=== PATIENT | female | born 1965 | race Caucasian/White ===

== ENCOUNTER 2019-05-11 13:53 | Inpatient (IN) | payer OTHER ==
--- NOTE | 2019-05-11 15:09 | XRAY ---
Indication: Right upper lobe pneumonia. Comparison: One day earlier. PA/lateral chest unchanged again demonstrating right perihilar infiltrates and inferior right upper lobe consolidation/subsegmental atelectasis. Remaining heart and left lung normal. No new cardiopulmonary abnormalities.
[2019-05-11] MEDS: DUONEB 0.5-3 MG/3 ml Neb IH SCH ×2 (15:26→19:30)
[2019-05-11] MEDS ORDERED: Sodium Chloride 0.9% 1000 ML 1,000 ML IV SCH (15:30)
[2019-05-11 15:54] LABS: Hemoglobin 11.3 gm/dl (12.0-16.0); Mean Corpuscular Hemoglobin 29.6 pg (26-32); Mean Corpuscular Hgb Concent. 33.2 g/dl (32-36); Mean Platelet Volume 9.3 fl (7.5-11.0); Platelet Count 394 K/mm3 (150-450); Red Blood Count 3.82 M/mm3 (4.1-5.4); Red Cell Distribution Width 13.1 % (11.5-14.0); White Blood Count 13.1 K/mm3 (4.0-10.5)
[2019-05-11] MEDS ORDERED: solu-MEDROL 40 MG IV SCH (16:00)
[2019-05-11 16:06] LABS: ALBUMIN 3.4 g/dL (3.5-5.0); ALKALINE PHOSPHATASE 142 U/L (38-126); BLOOD UREA NITROGEN 12 mg/dL (7-17); CHLORIDE 97 mmol/L (98-107); Calcium 8.6 mg/dL (8.4-10.2); Carbon Dioxide 31 mmol/L (22-30); Creatinine 1 0.55 mg/dL (0.52-1.04); Glucose 121 mg/dL (74-106); Potassium 3.4 mmol/L (3.5-5.1); SGOT/AST 50 U/L (14-36); SGPT/ALT 35 U/L (0-35); SODIUM 133 mmol/L (137-145)
[2019-05-11] MEDS: Lactated Ringers 1,000 ML IV SCH (17:15)
--- NOTE | 2019-05-11 17:50 | PCM.HP ---
History of Present Illness - Chief Complaint Chief Complaint: Pneumonia History of Present Illness: is a 53 year old female pt of mine from [facility] who was directlyh admitted for worsening pneumonia today. She has been sick x 9d; was seen in office and given po augmentin. Over the weekend she continued to have fevers to 102 and her daughter who is an RN checked a pulse ox and found her 87-88% on room air today. She did take 1 levaquin 500mg po this morning that I had called in. She got a dose of solumedrol already with some change in her cough h ere. - Review of Systems Constitutional: Fever, Weakness Respiratory: Cough, Short Of Breath Abdominal/Gastrointestinal: Diarrhea, Appetite Changes Psychological: No Anxiety, No Depression Medications & Allergies Home Medications: Home Medication List estradioL [Estradiol] 1 mg PO DAILY 05/11/19 [History Confirmed 05/11/19] Allergies/Adverse Reactions: Allergies Allergy/AdvReac Type Severity Reaction Status Date / Time No Known Drug Allergies Allergy Verified 05/11/19 15:34 - Past Medical History Past Medical History: Yes Comment: Skin Cancer - Past Surgical History Past Surgical History: Yes Female Surgical History: Hysterectomy, Section - Social History Smoking Status: Never smoker Alcohol: None Drug Use: none - Physical Exam Vital Signs: Vital Signs - 24 hr Temp Pulse Resp BP Pulse Ox 05/11/19 15:30 91 H 18 91 L 05/11/19 15:19 98.3 F 107 H 18 146/67 91 L 05/11/19 14:20 98.3 F 107 H 18 146/67 91 L 05/11/19 14:19 98.3 F 107 H 18 146/67 91 L General Appearance: no apparent distress, alert Neurologic Exam: oriented x 3, cooperative Eye Exam: eyes nml inspection Ears, Nose, Throat Exam: moist mucous membranes Neck Exam: normal inspection, non-tender, No lymphadenopathy Respiratory Exam: normal breath sounds, rhonchi (RUL), wheezing (scattered throughout), No crackles/rales Cardiovascular Exam: regular rate/rhythm, normal heart sounds, No murmur Gastrointestinal/Abdomen Exam: soft, normal bowel sounds, No tenderness, No distention, No mass, No guarding, No rebound Back Exam: normal inspection, No CVA tenderness, No rash Extremity Exam: normal inspection, No swelling, No tenderness Results - Labs Lab/Micro Results: Lab Results-Last 24 Hours 05/11/19 05/11/19 Range/Units 15:45 15:45 WBC 13.1 H (4.0-10.5) K/mm3 RBC 3.82 L (4.1-5.4) M/mm3 Hgb 11.3 L (12.0-16.0) gm/dl Hct 34.0 L (35-47) % MCV 89.0 (78-100) fl MCH 29.6 (26-32) pg MCHC 33.2 (32-36) g/dl RDW 13.1 (11.5-14.0) % Plt Count 394 (150-450) K/mm3 MPV 9.3 (7.5-11.0) fl Sodium 133 L (137-145) mmol/L Potassium 3.4 L (3.5-5.1) mmol/L Chloride 97 L (98-107) mmol/L Carbon Dioxide 31 H (22-30) mmol/L Anion Gap 9.0 (5-15) MEQ/L BUN 12 (7-17) mg/dL Creatinine 0.55 (0.52-1.04) mg/dL Estimated GFR > 60.0 ML/MIN Glucose 121 H (74-106) mg/dL Calcium 8.6 (8.4-10.2) mg/dL Total Bilirubin 0.40 (0.2-1.3) mg/dL AST 50 H (14-36) U/L ALT 35 (0-35) U/L Alkaline Phosphatase 142 H (38-126) U/L Serum Total Protein 7.0 (6.3-8.2) g/dL Albumin 3.4 L (3.5-5.0) g/dL - Radiology Impressions Radiology Exams & Impressions: Radiology Procedures Category Date Time Status CHEST 2 VIEWS (PA AND LAT) Routine Exams 05/11/19 15:00 Completed - Other Procedures and Tests Respiratory Therapy 05/11/19 14:40 Oxygen Nasal Cannula 2 lpm 05/11/19 15:07 Respiratory Therapy Assessment DAILY 05/11/19 15:08 Peak Expiratory Flow Rate ONCE Assessment/Plan (1) Pneumonia Current Visit: Yes Status: Acute Qualifiers: Pneumonia type: due to unspecified organism Laterality: right Lung location: upper lobe of lung Qualified Code(s): J18.9 - Pneumonia, unspecified organism Assessment & Plan: Her CXR showed RUL with some possible consolidation. IV levaquin will start tomorrow. IV solumedrol, duonebs. Will attempt to get sputum culture. Will likely take several days to improve. On 2L NC currently. Code(s): J18.9 - PNEUMONIA, UNSPECIFIED ORGANISM
[2019-05-11 18:22] LABS: Appearance CLEAR (CLEAR); Bilirubin NEGATIVE (NEGATIVE); Blood NEGATIVE Ery/ul (0-5); Glucose NEGATIVE (NEGATIVE); Ketones NEGATIVE (NEGATIVE); Leukocyte Esterase NEGATIVE (NEGATIVE); Nitrite NEGATIVE (NEGATIVE); Protein,Urine Dip NEGATIVE (Negative); Specific Gravity 1.011 (1.005-1.025); Urobilinogen NEGATIVE mg/dL (0-1)
[2019-05-11 19:32] LABS: BAND 2 % (0.0-2.0); Basophil 1 % (0.0-1.0); Lymphocytes 5 % (24-44); Monocyte 5 % (0.0-12.0); Neutrophils 87 % (36.0-66.0); Total Cells Counted 100
[2019-05-11 19:39] LABS: Platelet Estimate NORMAL (NORMAL)
[2019-05-11] MEDS ORDERED: Zosyn INJ IV ONE (21:51)
[2019-05-11] MEDS ORDERED: Sodium Chloride 0.9% 100 ML IVPB 100 ML IV ONE (21:56)
[2019-05-11] MEDS: solu-MEDROL 125 MG IV SCH (22:50)
[2019-05-11] MEDS: Zosyn 3.375GM/100 Ml D5W 3.375 GM/100 ML IVPB IV SCH (23:40)
[2019-05-12] MEDS ORDERED: ENOXAPARIN SODIUM SQ ONE (00:39)
[2019-05-12] MEDS: ENOXAPARIN SODIUM SQ SCH ×2 (00:47→23:00)
[2019-05-12] MEDS: Lactated Ringers 1,000 ML IV SCH ×2 (04:10→14:57)
[2019-05-12] MEDS: solu-MEDROL 125 MG IV SCH ×4 (04:10→23:00)
[2019-05-12] MEDS ORDERED: Zosyn INJ IV ONE (05:54)
[2019-05-12] MEDS ORDERED: D5w 100ML Mini Bag 100 ML 100 ML IV ONE (05:55)
[2019-05-12] MEDS: Zosyn 3.375GM/100 Ml D5W 3.375 GM/100 ML IVPB IV SCH (06:08)
[2019-05-12] MEDS: DUONEB 0.5-3 MG/3 ml Neb IH SCH ×4 (06:53→19:59)
[2019-05-12 08:25] LABS: Hematocrit 34.7 % (35-47); Hemoglobin 11.6 gm/dl (12.0-16.0); Mean Cell Volume 88.7 fl (78-100); Mean Corpuscular Hemoglobin 29.7 pg (26-32); Mean Corpuscular Hgb Concent. 33.4 g/dl (32-36); Mean Platelet Volume 9.6 fl (7.5-11.0); Platelet Count 460 K/mm3 (150-450); Red Blood Count 3.91 M/mm3 (4.1-5.4); White Blood Count 12.3 K/mm3 (4.0-10.5)
[2019-05-12 08:42] LABS: BAND 2 % (0.0-2.0); Lymphocytes 4 % (24-44); Metamyelocyte 1 %; Monocyte 1 % (0.0-12.0); Neutrophils 92 % (36.0-66.0); Platelet Estimate NORMAL (NORMAL); Total Cells Counted 100
[2019-05-12 09:01] LABS: ANION GAP 12.1 MEQ/L (5-15); BLOOD UREA NITROGEN 10 mg/dL (7-17); CHLORIDE 101 mmol/L (98-107); Calcium 8.4 mg/dL (8.4-10.2); Carbon Dioxide 28 mmol/L (22-30); Creatinine 1 0.64 mg/dL (0.52-1.04); Glucose 216 mg/dL (74-106); Potassium 3.3 mmol/L (3.5-5.1); SODIUM 137 mmol/L (137-145)
--- NOTE | 2019-05-12 09:04 | XRAY ---
Indication: Pneumonia. Elevated d-dimer. Multiple contiguous axial images obtained through the chest using 80 cc Isovue 370 contrast and PE protocol. Comparison: None There is good opacification of the pulmonary arteries to include the lumbar and segmental branches. No filling defect or pulmonary embolus. Heart is not enlarged. Aorta is normal in course and caliber. No pathologic mediastinal/hilar lymphadenopathy. Lungs demonstrates diffuse right lung patchy airspace opacities with multiple foci of consolidations and tiny right effusion. Minimal patchy left upper lobe airspace opacities and left base subsegmental atelectasis. Bony thorax intact with pectus excavatum deformity. Limited upper abdomen demonstrates 12.3 cm splenomegaly and mild fatty liver. Impression: 1. Negative pulmonary embolus. 2. Diffuse right lung and minimal left upper lobe airspace disease with multifocal right lung consolidations and tiny right effusion. 3. Incidental fatty liver, spinal megaly, and pectus excavatum deformity. Comment: Preliminary interpretation was made by [facility]. No critical discrepancy.
--- NOTE | 2019-05-12 09:04 | PCM.NOTE ---
Date and Time: 05/12/19900 Subjective Assessment: She had desaturations last night and is currently on 5L NC. D-dimer was performed which was elevated >1400; CT chest with contrast revealed no PE, just bilat patchy consolidation consistent with penumonia. Antibiotic was changed to zosyn last night and pt was started on prophylactic dose of lovenox. This morning, pt is sitting in chair comfortably on her telephone. - Review of Systems Constitutional: No Fever Respiratory: Cough, Short Of Breath Objective Exam General Appearance: no apparent distress, alert Neurologic Exam: oriented x 3, cooperative Skin Exam: normal color, warm, dry, No rash Ears, Nose, Throat Exam: moist mucous membranes Neck Exam: normal inspection Respiratory Exam: rhonchi (bilat, particularly at the bases), wheezing ( throughout) Cardiovascular Exam: regular rate/rhythm, normal heart sounds, No murmur Extremity Exam: normal inspection, No pedal edema, No swelling Back Exam: normal inspection, No rash OBJECTIVE DATA Vital Signs: Vital Signs - 24 hr Temp Pulse Resp BP Pulse Ox 05/12/19 07:27 98.4 F 81 18 133/65 94 L 05/12/19 07:07 91 L 05/12/19 06:59 82 16 91 L 05/12/19 04:00 98.4 F 90 25 H 125/63 94 L 05/11/19 22:00 98.6 F 92 H 16 134/65 93 L 05/11/19 21:53 92 L 05/11/19 20:36 90 L 05/11/19 19:30 105 H 16 89 L 05/11/19 18:19 99 F 112 H 16 171/79 90 L 05/11/19 15:30 91 H 18 91 L 05/11/19 15:19 98.3 F 107 H 18 146/67 91 L 05/11/19 14:20 98.3 F 107 H 18 146/67 91 L 05/11/19 14:19 98.3 F 107 H 18 146/67 91 L Oxygen-Last 24 hours Oxygen Flowrate (L/min)-RT 5 Pain Assessment - Last Documented Pain Intensity 0 Pain Scale Used 0-10 Pain Scale Intake and Output: Intake & Output 05/09/19 05/10/19 05/11/19 05/12/19 11:59 11:59 11:59 11:59 Intake Total 1406 Output Total 1900 Balance -494 Weight 66.7 kg Lab Results: Lab Results-Last 24 Hours 05/11/19 05/11/19 05/11/19 Range/Units 15:45 15:45 18:04 WBC 13.1 H (4.0-10.5) K/mm3 RBC 3.82 L (4.1-5.4) M/mm3 Hgb 11.3 L (12.0-16.0) gm/dl Hct 34.0 L (35-47) % MCV 89.0 (78-100) fl MCH 29.6 (26-32) pg MCHC 33.2 (32-36) g/dl RDW 13.1 (11.5-14.0) % Plt Count 394 (150-450) K/mm3 MPV 9.3 (7.5-11.0) fl Segmented Neutrophils 87 H (36.0-66.0) % Band Neutrophils 2 (0.0-2.0) % Lymphocytes (Manual) 5 L (24-44) % Monocytes (Manual) 5 (0.0-12.0) % Basophils (Manual) 1 (0.0-1.0) % Metamyelocytes % Platelet Estimate NORMAL (NORMAL) RBC Morphology NORMAL D-Dimer (215-500) ng/mL Sodium 133 L (137-145) mmol/L Potassium 3.4 L (3.5-5.1) mmol/L Chloride 97 L (98-107) mmol/L Carbon Dioxide 31 H (22-30) mmol/L Anion Gap 9.0 (5-15) MEQ/L BUN 12 (7-17) mg/dL Creatinine 0.55 (0.52-1.04) mg/dL Estimated GFR > 60.0 ML/MIN Glucose 121 H (74-106) mg/dL Calcium 8.6 (8.4-10.2) mg/dL Total Bilirubin 0.40 (0.2-1.3) mg/dL AST 50 H (14-36) U/L ALT 35 (0-35) U/L Alkaline Phosphatase 142 H (38-126) U/L Serum Total Protein 7.0 (6.3-8.2) g/dL Albumin 3.4 L (3.5-5.0) g/dL Urine Color YELLOW (YELLOW) Urine Appearance CLEAR (CLEAR) Urine pH 7.0 (5-6) Ur Specific Prospect 1.011 (1.005-1.025) Urine Protein NEGATIVE (Negative) Urine Ketones NEGATIVE (NEGATIVE) Urine Blood NEGATIVE (0-5) Quirino/ul Urine Nitrite NEGATIVE (NEGATIVE) Urine Bilirubin NEGATIVE (NEGATIVE) Urine Urobilinogen NEGATIVE (0-1) mg/dL Ur Leukocyte Esterase NEGATIVE (NEGATIVE) Urine WBC (Auto) NONE (0-5) /HPF Urine RBC (Auto) NONE (0-2) /HPF U Epithel Cells (Auto) NONE (FEW) /HPF Urine Culture Reflexed NO (NO) Urine Glucose NEGATIVE (NEGATIVE) mg/dL 05/11/19 05/12/19 Range/Units 22:00 08:15 WBC 12.3 H (4.0-10.5) K/mm3 RBC 3.91 L (4.1-5.4) M/mm3 Hgb 11.6 L (12.0-16.0) gm/dl Hct 34.7 L (35-47) % MCV 88.7 (78-100) fl MCH 29.7 (26-32) pg MCHC 33.4 (32-36) g/dl RDW 13.0 (11.5-14.0) % Plt Count 460 H (150-450) K/mm3 MPV 9.6 (7.5-11.0) fl Segmented Neutrophils 92 H (36.0-66.0) % Band Neutrophils 2 (0.0-2.0) % Lymphocytes (Manual) 4 L (24-44) % Monocytes (Manual) 1 (0.0-12.0) % Basophils (Manual) (0.0-1.0) % Metamyelocytes 1 % Platelet Estimate NORMAL (NORMAL) RBC Morphology NORMAL D-Dimer 1429 H* (215-500) ng/mL Sodium (137-145) mmol/L Potassium (3.5-5.1) mmol/L Chloride (98-107) mmol/L Carbon Dioxide (22-30) mmol/L Anion Gap (5-15) MEQ/L BUN (7-17) mg/dL Creatinine (0.52-1.04) mg/dL Estimated GFR ML/MIN Glucose (74-106) mg/dL Calcium (8.4-10.2) mg/dL Total Bilirubin (0.2-1.3) mg/dL AST (14-36) U/L ALT (0-35) U/L Alkaline Phosphatase (38-126) U/L Serum Total Protein (6.3-8.2) g/dL Albumin (3.5-5.0) g/dL Urine Color (YELLOW) Urine Appearance (CLEAR) Urine pH (5-6) Ur Specific Prospect (1.005-1.025) Urine Protein (Negative) Urine Ketones (NEGATIVE) Urine Blood (0-5) Quirino/ul Urine Nitrite (NEGATIVE) Urine Bilirubin (NEGATIVE) Urine Urobilinogen (0-1) mg/dL Ur Leukocyte Esterase (NEGATIVE) Urine WBC (Auto) (0-5) /HPF Urine RBC (Auto) (0-2) /HPF U Epithel Cells (Auto) (FEW) /HPF Urine Culture Reflexed (NO) Urine Glucose (NEGATIVE) mg/dL Radiology Exams: Radiology Procedures Category Date Time Status CHEST 2 VIEWS (PA AND LAT) Routine Exams 05/11/19 15:00 Completed CHEST WITH CONTRAST [CT] Stat Exams 05/11/19 22:18 Taken Assessment/Plan (1) Pneumonia Current Visit: Yes Status: Acute Qualifiers: Pneumonia type: due to unspecified organism Laterality: right Lung location: upper lobe of lung Qualified Code(s): J18.9 - Pneumonia, unspecified organism Assessment & Plan: with hypoxemia; however clinically pt is looking good, in no distress. I expect her to improve today on the zosyn and steroids. If not, would consider pulmonology consult. Code(s): J18.9 - PNEUMONIA, UNSPECIFIED ORGANISM
[2019-05-12] MEDS ORDERED: Levofloxacin 500MG/100ML D5W 500 MG/100 ML BAG IV SCH (10:00)
[2019-05-12] MEDS: ESTRACE 1 MG PO SCH (10:43)
[2019-05-12] MEDS: Mucinex 600MG ER Tabs PO SCH ×2 (10:43→23:00)
[2019-05-12] MEDS: Zosyn INJ 4.5 GM in Sodium Chloride 100ML MINI-BAG PLUS 100 ML IV SCH ×3 (11:47→23:01)
[2019-05-12] MEDS ORDERED: WATER IV SCH (12:00)
[2019-05-12] MEDS ORDERED: ZOSYN IV SCH (12:00)
[2019-05-12] MEDS ORDERED: DEXTROSE IV SCH (12:00)
[2019-05-13] MEDS: Lactated Ringers 1,000 ML IV SCH ×2 (01:53→13:11)
[2019-05-13 05:09] LABS: ANION GAP 8.9 MEQ/L (5-15); BLOOD UREA NITROGEN 15 mg/dL (7-17); CHLORIDE 103 mmol/L (98-107); Carbon Dioxide 30 mmol/L (22-30); Creatinine 1 0.67 mg/dL (0.52-1.04); Glucose 163 mg/dL (74-106); Potassium 3.4 mmol/L (3.5-5.1); SODIUM 139 mmol/L (137-145)
[2019-05-13 05:16] LABS: Hematocrit 30.1 % (35-47); Hemoglobin 9.8 gm/dl (12.0-16.0); Mean Cell Volume 89.9 fl (78-100); Mean Corpuscular Hemoglobin 29.3 pg (26-32); Mean Corpuscular Hgb Concent. 32.6 g/dl (32-36); Mean Platelet Volume 9.9 fl (7.5-11.0); Platelet Count 459 K/mm3 (150-450); Red Blood Count 3.35 M/mm3 (4.1-5.4); White Blood Count 19.3 K/mm3 (4.0-10.5)
[2019-05-13 05:39] LABS: BAND 2 % (0.0-2.0); Lymphocytes 2 % (24-44); Monocyte 1 % (0.0-12.0); Neutrophils 95 % (36.0-66.0); Platelet Estimate NORMAL (NORMAL); Total Cells Counted 100
[2019-05-13] MEDS: solu-MEDROL 125 MG IV SCH ×4 (05:40→23:33)
[2019-05-13] MEDS: Zosyn INJ 4.5 GM in Sodium Chloride 100ML MINI-BAG PLUS 100 ML IV SCH ×4 (05:41→23:34)
[2019-05-13] MEDS: DUONEB 0.5-3 MG/3 ml Neb IH SCH ×4 (06:49→18:59)
--- NOTE | 2019-05-13 08:56 | PCM.NOTE ---
Date and Time: 05/13/19 08 Subjective Assessment: Pt went down to 4L O2 per NC from 5L yesterday. She has increased appetite today. - Review of Systems Constitutional: No Fever Respiratory: Cough, Short Of Breath Objective Exam General Appearance: no apparent distress, alert Neurologic Exam: oriented x 3, cooperative Skin Exam: normal color, warm, dry, No rash Respiratory Exam: normal breath sounds, rhonchi (LLL particularly), No crackles/ rales, No wheezing Cardiovascular Exam: regular rate/rhythm, normal heart sounds, No murmur Extremity Exam: normal inspection, No pedal edema, No swelling Back Exam: normal inspection, No rash OBJECTIVE DATA Vital Signs: Vital Signs - 24 hr Temp Pulse Resp BP Pulse Ox 05/13/19 07:26 98.2 F 101 H 18 134/63 92 L 05/13/19 06:53 84 16 90 L 05/13/19 04:00 98.4 F 83 18 148/76 97 05/13/19 00:00 98.8 F 88 20 156/75 96 05/12/19 23:47 95 05/12/19 20:04 91 H 20 93 L 05/12/19 20:00 97.5 F 92 H 18 141/71 96 05/12/19 16:00 98.0 F 101 H 18 152/72 95 05/12/19 15:34 86 24 95 05/12/19 11:29 88 22 05/12/19 11:27 90 18 136/76 92 L Oxygen-Last 24 hours Oxygen Flowrate (L/min)-RT 4 Oxygen Flowrate (L/min)-RT 5 Oxygen Flowrate (L/min)-RT 4 Pain Assessment - Last Documented Pain Intensity 0 Pain Scale Used 0-10 Pain Scale Intake and Output: Intake & Output 05/10/19 05/11/19 05/12/19 05/13/19 11:59 11:59 11:59 11:59 Intake Total 6456 3931 Output Total 1900 700 Balance -14 3231 Weight 66.7 kg Lab Results: Lab Results-Last 24 Hours 05/12/19 05/13/19 05/13/19 Range/Units 08:15 04:25 04:25 WBC 19.3 H (4.0-10.5) K/mm3 RBC 3.35 L (4.1-5.4) M/mm3 Hgb 9.8 L (12.0-16.0) gm/dl Hct 30.1 L (35-47) % MCV 89.9 (78-100) fl MCH 29.3 (26-32) pg MCHC 32.6 (32-36) g/dl RDW 13.0 (11.5-14.0) % Plt Count 459 H (150-450) K/mm3 MPV 9.9 (7.5-11.0) fl Segmented Neutrophils 95 H (36.0-66.0) % Band Neutrophils 2 (0.0-2.0) % Lymphocytes (Manual) 2 L (24-44) % Monocytes (Manual) 1 (0.0-12.0) % Platelet Estimate NORMAL (NORMAL) RBC Morphology NORMAL Sodium 137 139 (137-145) mmol/L Potassium 3.3 L 3.4 L (3.5-5.1) mmol/L Chloride 101 103 (98-107) mmol/L Carbon Dioxide 28 30 (22-30) mmol/L Anion Gap 12.1 8.9 (5-15) MEQ/L BUN 10 15 (7-17) mg/dL Creatinine 0.64 0.67 (0.52-1.04) mg/dL Estimated GFR > 60.0 > 60.0 ML/MIN Glucose 216 H 163 H (74-106) mg/dL Calcium 8.4 8.0 L (8.4-10.2) mg/dL Radiology Exams: Radiology Procedures Category Date Time Status CHEST 2 VIEWS (PA AND LAT) Routine Exams 05/11/19 15:00 Completed CHEST WITH CONTRAST [CT] Stat Exams 05/11/19 22:18 Completed Assessment/Plan (1) Pneumonia Current Visit: Yes Status: Acute Qualifiers: Pneumonia type: due to unspecified organism Laterality: right Lung location: upper lobe of lung Qualified Code(s): J18.9 - Pneumonia, unspecified organism Assessment & Plan: She does still have rhonchi, otherwise sounding a little better to me than at admission. Still hypoxemic and on 4L NC. Will go ahead and consult pulmonology , thank you. Code(s): J18.9 - PNEUMONIA, UNSPECIFIED ORGANISM
[2019-05-13] MEDS: ESTRACE 1 MG PO SCH (10:17)
[2019-05-13] MEDS: Mucinex 600MG ER Tabs PO SCH ×2 (10:17→21:12)
[2019-05-13] MEDS: ENOXAPARIN SODIUM SQ SCH (21:12)
[2019-05-14] MEDS: Lactated Ringers 1,000 ML IV SCH (02:38)
[2019-05-14] MEDS: Zosyn INJ 4.5 GM in Sodium Chloride 100ML MINI-BAG PLUS 100 ML IV SCH ×4 (05:22→23:42)
[2019-05-14] MEDS: solu-MEDROL 125 MG IV SCH ×3 (05:22→22:03)
[2019-05-14] MEDS: DUONEB 0.5-3 MG/3 ml Neb IH SCH ×4 (07:06→19:30)
[2019-05-14] MEDS: Mucinex 600MG ER Tabs PO SCH ×2 (08:13→22:03)
[2019-05-14] MEDS: ESTRACE 1 MG PO SCH (08:13)
--- NOTE | 2019-05-14 08:18 | CONS ---
CONSULT DATE: 05/13/2019: HISTORY: Jewels Oconnor is a 53 year-old woman without any significant past pulmonary or general medical problems, who was in usual state of health about ten days ago. The patient started having chills with fever and was seen in [facility] where she apparently tested negative for influenza. She was advised to rest. The patient reports that her symptoms are progressively worse with high grade fever, cough and progressive shortness of breath. In addition, she was noted to have drop in oxygen saturation leading to another visit to Dr. Fuentes. She diagnosed the patient with pneumonia and she has been since admitted to the medical floor. The patient had a positive D-dimer. A CT chest performed on 05/11/2019 showed no evidence of pulmonary embolism. However diffuse right lung and mild left upper lobe air space disease suggestive of pneumonia with small right pleural effusion was noted. The patient has been treated with IV antibiotics since admission. At the time of my evaluation she does report clinical improvement. She has cough which has been productive of thick expectoration. She denies any hemoptysis. The patient reportedly had pneumonia about eight years ago that was treated as an outpatient. She has not had any other pulmonary problems. PAST MEDICAL HISTORY: Reportedly she has been in good health. MEDICATIONS: Other than calcium, hormone replacement she does not take any other prescription medications. Medications reviewed. ALLERGIES: NKDA. PAST SURGICAL HISTORY: Positive for hysterectomy and section. PERSONAL AND SOCIAL HISTORY: She is a nonsmoker. MEDICATIONS: Home and current medications are reviewed. PHYSICAL EXAMINATION: This is a middle aged woman who appears comfortable. She is able to speak without any difficulty, sitting in chair on oxygen via nasal cannula. Vital signs noted. HEENT: Normocephalic. Oral exam is unremarkable. CVS: First and second heart sounds are noted to be normal, regular, rhythmic. RESPIRATORY: Shows diminished breath sounds. Bilateral crackles are heard right more than left. ABDOMEN: Soft. No edema is noted. LABORATORY DATA AND TESTS: White count is 19.3, hemoglobin 9.8, hematocrit 30, PLT 459,000. Sodium 139, potassium 3.4, chloride 103, bicarb 30, glucose 163, BUN 15, creatinine 0.6. CT chest as above. ASSESSMENT: This is a 53 year old healthy woman who has been hospitalized with: 1) Multi-lobar community acquired pneumonia. 2) Hypoxemic respiratory failure secondary to above. 3) Small right pleural effusion likely parapneumonic, needs monitoring for resolution. 4) Anemia mild with leukocytosis. RECOMMENDATIONS: 1) The patient is already clinically showing improvement. 2) Advised to continue antibiotics for at least 48 hours. A repeat chest x-ray prior to discharge and upon completion of antibiotic therapy is advised for complete resolution of pneumonia. 3) Advised to have a flu shot. The patient reportedly has never had one in the past. 4) Venous Doppler's for positive D-dimer if not already done. I will be available if any questions are unanswered. Thank you, Dr. Fuentes, for allowing me to participate in the care of Miss Oconnor.
--- NOTE | 2019-05-14 08:36 | XRAY ---
Indication: Hypoxia. Follow-up pneumonia. Comparison: May 11, 2019. PA/lateral chest continues to remain unchanged again demonstrating right perihilar infiltrates, inferior right upper lobe consolidation/atelectasis, and left lower lobe infiltrate/atelectasis. Heart and mediastinal structures within normal limits. No new cardiopulmonary abnormalities.
[2019-05-14] MEDS ORDERED: Sodium Chloride 0.9% 10 ML FLUSH Syringe IV PRN (09:00)
--- NOTE | 2019-05-14 09:10 | PCM.NOTE ---
Date and Time: 05/14/19908 Subjective Assessment: She is feeling better. Down to 2L NC. - Review of Systems Constitutional: No Fever Respiratory: Cough, Short Of Breath Objective Exam General Appearance: no apparent distress, alert Neurologic Exam: oriented x 3, cooperative Skin Exam: normal color, warm, dry, No rash Respiratory Exam: rhonchi (LLL), wheezing (scattered throughout), No diminished breath sounds, No crackles/rales Cardiovascular Exam: regular rate/rhythm, normal heart sounds, No murmur Extremity Exam: normal inspection, No pedal edema, No swelling Back Exam: normal inspection, No rash OBJECTIVE DATA Vital Signs: Vital Signs - 24 hr Temp Pulse Resp BP Pulse Ox 05/14/19 07:58 97.9 F 88 18 153/73 94 L 05/14/19 07:15 94 H 16 93 L 05/14/19 04:00 97.9 F 84 18 174/80 96 05/14/19 00:00 98.5 F 102 H 20 147/85 93 L 05/13/19 20:00 98.3 F 81 18 156/73 95 05/13/19 19:04 88 21 93 L 05/13/19 17:48 93 L 05/13/19 16:00 98.3 F 92 H 18 135/76 93 L 05/13/19 14:17 88 16 97 05/13/19 12:00 98.2 F 92 H 18 129/67 94 L 05/13/19 10:14 90 18 91 L Oxygen-Last 24 hours Oxygen Flowrate (L/min)-RT 2 Oxygen Flowrate (L/min)-RT 2 Oxygen Flowrate (L/min)-RT 2 Pain Assessment - Last Documented Pain Intensity 0 Pain Scale Used [facility] Intake and Output: Intake & Output 05/11/19 05/12/19 05/13/19 05/14/19 11:59 11:59 11:59 11:59 Intake Total 1886 4411 3604 Output Total 5252 412 0590 Balance -14 3711 1304 Weight 66.7 kg 66.7 kg Radiology Exams: Radiology Procedures Category Date Time Status CHEST 2 VIEWS (PA AND LAT) Routine Exams 05/14/19 07:00 Completed VENOUS BILATERAL EXTREMITY [US] Routine Exams 05/14/19 07:00 Ordered Assessment/Plan (1) Pneumonia Current Visit: Yes Status: Acute Qualifiers: Pneumonia type: due to unspecified organism Laterality: right Lung location: upper lobe of lung Qualified Code(s): J18.9 - Pneumonia, unspecified organism Assessment & Plan: Pulmonology consulted yesterday, thank you. She is improved. On IV zosyn and IV steroids. Decrease steroids again slightly. Code(s): J18.9 - PNEUMONIA, UNSPECIFIED ORGANISM
[2019-05-14 10:24] LABS: Hematocrit 31.1 % (35-47); Hemoglobin 10.1 gm/dl (12.0-16.0); Mean Cell Volume 90.4 fl (78-100); Mean Corpuscular Hemoglobin 29.4 pg (26-32); Mean Corpuscular Hgb Concent. 32.5 g/dl (32-36); Mean Platelet Volume 9.6 fl (7.5-11.0); Platelet Count 502 K/mm3 (150-450); Red Blood Count 3.44 M/mm3 (4.1-5.4); Red Cell Distribution Width 13.2 % (11.5-14.0); White Blood Count 19.4 K/mm3 (4.0-10.5)
[2019-05-14 11:12] LABS: ANION GAP 12.9 MEQ/L (5-15); BLOOD UREA NITROGEN 17 mg/dL (7-17); CHLORIDE 102 mmol/L (98-107); Calcium 7.9 mg/dL (8.4-10.2); Carbon Dioxide 27 mmol/L (22-30); Creatinine 1 0.75 mg/dL (0.52-1.04); Glucose 196 mg/dL (74-106); MAGNESIUM 2.4 mg/dL (1.6-2.3); SODIUM 139 mmol/L (137-145)
[2019-05-14 11:13] LABS: Potassium 2.9 mmol/L (3.5-5.1)
[2019-05-14] MEDS: K-LYTE 25 MEQ PO SCH ×2 (11:42→22:03)
--- NOTE | 2019-05-14 12:06 | XRAY ---
Indication: Elevated d-dimer. Two-dimensional sonogram and color Doppler imaging of the major venous vessels of left and right leg was performed. Comparison: None No thrombus seen in the examined deep venous vessels of the left and right leg including greater saphenous vein. Veins demonstrate normal compressibility. Venous waveforms are normal with and without augmentation. Impression: Left and right legs negative for DVT.
[2019-05-14] MEDS: Sodium Chloride 0.9% 10 ML FLUSH Syringe IV SCH ×2 (13:34→22:04)
[2019-05-14 14:35] LABS: MAGNESIUM 2.4 mg/dL (1.6-2.3); Potassium 3.2 mmol/L (3.5-5.1)
[2019-05-14] MEDS: ENOXAPARIN SODIUM SQ SCH (22:03)
[2019-05-15 05:27] LABS: Hemoglobin 9.9 gm/dl (12.0-16.0); Mean Cell Volume 90.6 fl (78-100); Mean Corpuscular Hemoglobin 28.9 pg (26-32); Mean Corpuscular Hgb Concent. 31.9 g/dl (32-36); Mean Platelet Volume 9.4 fl (7.5-11.0); Platelet Count 513 K/mm3 (150-450); Red Blood Count 3.42 M/mm3 (4.1-5.4); Red Cell Distribution Width 13.1 % (11.5-14.0); White Blood Count 19.1 K/mm3 (4.0-10.5)
[2019-05-15] MEDS: DUONEB 0.5-3 MG/3 ml Neb IH SCH ×4 (05:33→20:11)
[2019-05-15] MEDS: solu-MEDROL 125 MG IV SCH ×3 (06:03→22:09)
[2019-05-15] MEDS: Zosyn INJ 4.5 GM in Sodium Chloride 100ML MINI-BAG PLUS 100 ML IV SCH ×3 (06:04→18:36)
[2019-05-15] MEDS: Sodium Chloride 0.9% 10 ML FLUSH Syringe IV SCH ×3 (06:04→22:10)
[2019-05-15 06:09] LABS: ANION GAP 8.5 MEQ/L (5-15); BLOOD UREA NITROGEN 15 mg/dL (7-17); CHLORIDE 99 mmol/L (98-107); Calcium 7.7 mg/dL (8.4-10.2); Carbon Dioxide 32 mmol/L (22-30); Creatinine 1 0.72 mg/dL (0.52-1.04); Glucose 128 mg/dL (74-106); MAGNESIUM 2.4 mg/dL (1.6-2.3); Potassium 3.5 mmol/L (3.5-5.1); SODIUM 136 mmol/L (137-145)
--- NOTE | 2019-05-15 08:48 | PCM.NOTE ---
Date and Time: 05/15/19 0844 Subjective Assessment: Pt is feeling better, less short of breath. Nikolay po well. Starting to have some productivity to her cough. Went down to 1L NC for a while yesterday then had to increase back up to 2L NC. - Review of Systems Constitutional: No Fever Respiratory: Cough Objective Exam General Appearance: no apparent distress, alert Neurologic Exam: oriented x 3, cooperative Skin Exam: normal color, warm, dry, No rash Eye Exam: eyes nml inspection Ears, Nose, Throat Exam: moist mucous membranes Neck Exam: normal inspection Respiratory Exam: normal breath sounds, rhonchi (bilat bases), wheezing (faint, scattered), No crackles/rales Cardiovascular Exam: regular rate/rhythm, normal heart sounds, No murmur Extremity Exam: normal inspection, No pedal edema, No swelling Back Exam: normal inspection, No rash OBJECTIVE DATA Vital Signs: Vital Signs - 24 hr Temp Pulse Resp BP Pulse Ox 05/15/19 07:29 98.6 F 89 18 149/70 90 L 05/15/19 05:36 83 18 93 L 05/15/19 04:00 98.1 F 87 17 161/79 95 05/15/19 00:00 97.8 F 78 18 171/88 95 05/14/19 20:19 80 18 93 L 05/14/19 20:00 97.8 F 81 25 H 169/85 94 L 05/14/19 16:00 97.8 F 86 18 154/76 95 05/14/19 15:00 86 18 95 05/14/19 11:51 97.9 F 89 20 159/80 93 L 05/14/19 11:10 94 H 18 91 L Pain Assessment - Last Documented Pain Intensity 0 Pain Scale Used 0-10 Pain Scale Intake and Output: Intake & Output 05/12/19 05/13/19 05/14/19 05/15/19 11:59 11:59 11:59 11:59 Intake Total 1886 4411 3844 3075 Output Total 7866 958 6863 500 Balance -14 3711 1544 4595 Weight 66.7 kg 66.7 kg Lab Results: Lab Results-Last 24 Hours 05/14/19 05/14/19 05/14/19 Range/Units 10:15 10:15 13:55 WBC 19.4 H (4.0-10.5) K/mm3 RBC 3.44 L (4.1-5.4) M/mm3 Hgb 10.1 L (12.0-16.0) gm/dl Hct 31.1 L (35-47) % MCV 90.4 (78-100) fl MCH 29.4 (26-32) pg MCHC 32.5 (32-36) g/dl RDW 13.2 (11.5-14.0) % Plt Count 502 H (150-450) K/mm3 MPV 9.6 (7.5-11.0) fl Sodium 139 (137-145) mmol/L Potassium 2.9 L* 3.2 L (3.5-5.1) mmol/L Chloride 102 (98-107) mmol/L Carbon Dioxide 27 (22-30) mmol/L Anion Gap 12.9 (5-15) MEQ/L BUN 17 (7-17) mg/dL Creatinine 0.75 (0.52-1.04) mg/dL Estimated GFR > 60.0 ML/MIN Glucose 196 H (74-106) mg/dL Calcium 7.9 L (8.4-10.2) mg/dL Magnesium 2.4 H 2.4 H (1.6-2.3) mg/dL 05/15/19 05/15/19 Range/Units 05:15 05:15 WBC 19.1 H (4.0-10.5) K/mm3 RBC 3.42 L (4.1-5.4) M/mm3 Hgb 9.9 L (12.0-16.0) gm/dl Hct 31.0 L (35-47) % MCV 90.6 (78-100) fl MCH 28.9 (26-32) pg MCHC 31.9 L (32-36) g/dl RDW 13.1 (11.5-14.0) % Plt Count 513 H (150-450) K/mm3 MPV 9.4 (7.5-11.0) fl Sodium 136 L (137-145) mmol/L Potassium 3.5 (3.5-5.1) mmol/L Chloride 99 (98-107) mmol/L Carbon Dioxide 32 H (22-30) mmol/L Anion Gap 8.5 (5-15) MEQ/L BUN 15 (7-17) mg/dL Creatinine 0.72 (0.52-1.04) mg/dL Estimated GFR > 60.0 ML/MIN Glucose 128 H (74-106) mg/dL Calcium 7.7 L (8.4-10.2) mg/dL Magnesium 2.4 H (1.6-2.3) mg/dL Radiology Exams: Radiology Procedures Category Date Time Status CHEST 2 VIEWS (PA AND LAT) Routine Exams 05/14/19 07:00 Completed VENOUS BILATERAL EXTREMITY [US] Routine Exams 05/14/19 07:00 Completed Assessment/Plan (1) Pneumonia Current Visit: Yes Status: Acute Qualifiers: Pneumonia type: due to unspecified organism Laterality: right Lung location: upper lobe of lung Qualified Code(s): J18.9 - Pneumonia, unspecified organism Assessment & Plan: Her O2 requirement has decreased. She has no known underlying lung disorder, and was certainly not on O2 at home. She is getting anxious to be discharged to home however. On Day #4 IV zosyn. We discussed that if she got off of oxygen today and stayed off all night, could maybe be discharged to home tomorrow. I realize that patients can be discharged to home on oxygen but I am wary of that in this relatively young previously healthy patient that had such an initially serious pneumonia. Code(s): J18.9 - PNEUMONIA, UNSPECIFIED ORGANISM
[2019-05-15] MEDS: ESTRACE 1 MG PO SCH (09:36)
[2019-05-15] MEDS: Mucinex 600MG ER Tabs PO SCH ×2 (09:36→22:09)
[2019-05-15] MEDS: K-LYTE 25 MEQ PO SCH ×2 (09:36→22:08)
[2019-05-15] MEDS: NORVASC 5 MG PO SCH (09:36)
[2019-05-15] MEDS: ENOXAPARIN SODIUM SQ SCH (22:09)
[2019-05-16] MEDS: Zosyn INJ 4.5 GM in Sodium Chloride 100ML MINI-BAG PLUS 100 ML IV SCH ×3 (00:08→12:22)
[2019-05-16] MEDS: Sodium Chloride 0.9% 10 ML FLUSH Syringe IV SCH ×2 (05:21→14:13)
[2019-05-16] MEDS: solu-MEDROL 125 MG IV SCH ×2 (05:21→14:08)
[2019-05-16] MEDS: DUONEB 0.5-3 MG/3 ml Neb IH SCH ×3 (07:20→16:43)
[2019-05-16] MEDS: K-LYTE 25 MEQ PO SCH (09:51)
[2019-05-16] MEDS: ESTRACE 1 MG PO SCH (09:51)
[2019-05-16] MEDS: Mucinex 600MG ER Tabs PO SCH (09:52)
[2019-05-16] MEDS: NORVASC 5 MG PO SCH (09:52)
--- NOTE | 2019-05-16 13:08 | PCM.DS ---
Discharge Summary Date of Admission: 05/11/19 14:03 Date of Discharge: 05/16/19 Admitting Physician: KEILA FUENTES Consults: Consults on Case 05/13/19 08:43 Consult Pulmonology ROUTINE Primary Care Provider: KEILA FUENTES Allergies Allergies No Known Drug Allergies Allergy (Verified 05/11/19 15:34) Hospital Summary - Hospital Course Hospital Course: is a 53 year old female pt of Dr Fuentes'dominique from [facility] who was directly admitted for worsening pneumonia on Saturday. She has been sick x 9d; was seen in office and given po augmentin. Over the weekend she continued to have fevers to 102 and her daughter who is an RN checked a pulse ox and found her 87-88% on room air today. She did take 1 levaquin 500mg po this morning that I had called in. She got a dose of solumedrol already with some change in her cough here. Patient continued to have SOB and required being placed on 5L of oxygen. Patient was started on duonebs and steroids. She was also instructed to do incentive spirometry and chest flutter therapy. Patient slowly started improving. Her antibiotics were recently switched to Zosyn which she has done well on. Patient had oxygen removed today and was sating in the low 90% on RA. Patient denies chest pain. She reports that she will get short of breath if she walks for longer distances. She is anxious to go home. Discussed with patient possibility of going home today if her oxygen saturation stays up on RA. She would go home on steroids, duonebs antibiotics and duonebs. - Vitals & Intake/Output Vital Signs: Vital Signs Temperature 97.6 F 05/16/19 12:00 Pulse Rate 89 05/16/19 12:00 Respiratory Rate 22 05/16/19 12:00 Blood Pressure 140/74 05/16/19 12:00 O2 Sat by Pulse Oximetry 91 L 05/16/19 12:00 Intake & Output: Intake & Output 05/14/19 05/15/19 05/16/19 05/17/19 11:59 11:59 11:59 11:59 Intake Total 3844 1435 2477 Output Total 2300 500 Balance 1544 3055 2477 Weight 66.7 kg - Lab Result Diagrams: 05/15/19 05:15 05/15/19 05:15 Micro Results-Entire Visit: Microbiology 05/14/19 07:15 Gram Stain - Final Sputum - Expectorant Sputum Culture - Preliminary ORGANISMS ISOLATED ARE CONSISTENT WITH NORMAL RESP ISAAK SCANT GROWTH, NO PREDOMINANT ORGANISM 05/11/19 18:04 Urine Culture - Final Urine, Void NO GROWTH - Procedures and Test Procedures and Tests throughout Hospitalization: Therapy Orders & Screens 05/11/19 14:40 Oxygen Nasal Cannula 2 lpm Comment: to keep sats >90% Diagnosis: pne RUL 05/11/19 15:07 Respiratory Therapy Assessment DAILY Comment: Diagnosis: pne RUL 05/11/19 15:08 Peak Expiratory Flow Rate ONCE Comment: Reason For Exam: Diagnosis: pne RUL 05/12/19 15:11 Incentive Spirometry TID Comment: Diagnosis: Pneumonia Discharge Exam General Appearance: no apparent distress Neurologic Exam: alert, oriented x 3, cooperative Eye Exam: eyes nml inspection Ears, Nose, Throat Exam: moist mucous membranes Neck Exam: normal inspection Respiratory Exam: crackles/rales (Diffuse crackles throughout lungs bilaterally) , No lungs clear, No respiratory distress, No diminished breath sounds, No accessory muscle use Cardiovascular Exam: regular rate/rhythm, normal heart sounds Gastrointestinal/Abdomen Exam: soft, normal bowel sounds, No tenderness Skin Exam: normal color, warm, dry, No rash Final Diagnosis/Problem List - Final Discharge Diagnosis/Problem (1) Pneumonia Current Visit: Yes Status: Acute Assessment & Plan: Patient has had a extensive course of pneumonia. She was on PO augmentin outpatient and failed outpatient therapy. She is not requiring oxygen at this time. She does not appear to have increased work of breathing at this time. Will plan for DC if patient is able to keep her oxygen saturation levels above 90. Code(s): J18.9 - PNEUMONIA, UNSPECIFIED ORGANISM (2) Failure of outpatient treatment Current Visit: No Status: Acute Assessment & Plan: Patient failed initial antibiotic tx for pneumonia and started having increase shortness of breath and low oxygen saturations which required patient be hospitalized. Will consider discharge to home today. Code(s): Z78.9 - OTHER SPECIFIED HEALTH STATUS - Discharge Disposition: Home, Self-Care Condition: Stable Prescriptions: New Cefdinir 300 mg PO BID 5 Days #10 capsule Albuterol/Ipratropium 3ml Neb* [DUONEB 0.5-3 MG/3 ml Neb] 3 ml IH Q4H 4 Days #24 ampul.neb Guaifenesin [Mucinex] 1,200 mg PO BID 5 Days #10 tab.er.12h Azithromycin 250 mg [Zithromax 250 MG TABLET] 250 mg PO ZPACK #6 tablet Amlodipine Besylate 5 mg [Norvasc 5 mg] 5 mg PO DAILY #30 tablet Continue estradioL [Estradiol] 1 mg PO DAILY Additional Instructions: NEEDS CXR DONE AFTER COMPLETION OF ATB'S Follow up with: PASTORA GUTIERREZ [ACTIVE STAFF] - 1 Week (F/U in 2 weeks) KEILA FUENTES [Primary Care Provider] - 1 Week
[2019-05-16 16:40] VITALS: BP 146/77
[2019-05-16 16:49] VITALS: PULSE 80; O2SAT 92
== END 2019-05-16 18:00 | disposition home or self-care (01) | DRG 195 ==
LOC: MED SURG 14:03 → OBSVTOIN 14:03
PROVIDERS: ADMIT Family Medicine; ATTEND Family Medicine
DX: J18.9 Pneumonia, unspecified organism (principal); Z78.9 Other specified health status; Z85.828 Personal history of other malignant neoplasm of skin
CPT/HCPCS: 36415; 71046; 71260; 80048; 80053; 81001; 83735; 84132; 85025; 85027; 85379; 87070; 87086; 93970; 94150; 94640; 94760; 94762; J1650; J2543; J2920; J2930; A9270-GY